=== PATIENT | female | born 1970 | race Hispanic/Latino ===

== ENCOUNTER 2019-12-22 01:30 | Inpatient (IN) | payer OTHER, SELFPAY ==
[~2019-12-22] VITALS: Ht 157.5 cm; Wt 65.1 kg
[2019-12-22] MEDS ORDERED: FENTANYL CITRATE PF 50 MCG/1 ML 2ML VIAL ONE (01:32)
[2019-12-22 02:20] LABS: BASOPHILS % (AUTO) 0.4 % (0.0-5.0); EOSINOPHILS % (AUTO) 3.2 % (0.0-8.0); HEMATOCRIT 36.6 % (36-48); LYMPHOCYTES % (AUTO) 50.8 % (21.0-51.0); MEAN CORPUSCULAR HEMOGLOBIN 31.4 pg (27.0-33.0); MEAN CORPUSCULAR HGB CONC 34.2 g/dL (32.0-36.0); NEUTROPHILS % (AUTO) 35.3 % (40.0-77.0); PLATELET COUNT (AUTO) 285 K/uL (130-400); RED BLOOD CELL COUNT(AUTO) 3.98 MIL/uL (4.00-5.50); RED CELL DISTRIBUTION WIDTH 11.9 % (11.0-15.5); WHITE BLOOD COUNT (AUTO) 9.6 K/uL (4.8-10.8)
[2019-12-22 02:32] LABS: CREATININE 0.8 mg/dL (0.5-1.5); POTASSIUM 3.1 mmol/L (3.5-5.1)
[2019-12-22] MEDS ORDERED: LIDOCAINE HCL-MPF 1% 2ML VIAL IV PRN (03:15)
[2019-12-22] MEDS: LACTATED RINGERS 1000ML 1,000 ML IV SCH ×3 (03:15→23:15)
[2019-12-22] MEDS ORDERED: MAGNESIUM 2GM PREMIX 50ML 50 ML IV PRN (03:15)
[2019-12-22] MEDS ORDERED: ACETAMINOPHEN 325 MG TAB PO PRN (03:15)
[2019-12-22] MEDS ORDERED: POTASSIUM CHLORIDE 20MEQ/100ML 100 ML IV PRN (03:15)
[2019-12-22 03:35] LABS: APPEARANCE,URINE Clear (CLEAR); BILIRUBIN,URINE Negative (NEGATIVE); COLOR,URINE Yellow (YELLOW); GLUCOSE, URINE (UA) Negative (NEGATIVE); KETONES,URINE Negative (NEGATIVE); LEUKOCYTE ESTERASE ,URINE Negative (NEGATIVE); NITRATE,URINE Negative (NEGATIVE); OCCULT BLOOD,URINE Negative (NEGATIVE); PROTEIN,URINE Negative (NEGATIVE); UROBILINOGEN,URINE 0.2 mg/dL (0.2-1.0)
[2019-12-22 03:37] LABS: BACTERIA,URINE None Seen /HPF (None Seen); RBC,URINE None Seen /HPF (0-1); WBC,URINE None Seen /HPF (0-1)
[2019-12-22] MEDS ORDERED: LACTATED RINGERS 1000ML 1,000 ML IV ONE (05:07)
[2019-12-22] MEDS ORDERED: POTASSIUM CHLORIDE 20MEQ/100ML 100 ML IV ONE (05:17)
[2019-12-22] MEDS ORDERED: LIDOCAINE HCL-MPF 1% 2ML VIAL ONE (05:17)
[2019-12-22 05:20] VITALS: BP 118/78
--- NOTE | 2019-12-22 05:20 | NUR ---
ADMISSION. PT TRANSFERRED FROM ER INTO ROOM 306, AWAKE, ALERT AND VERBALLY RESPONSIVE. C/O DISCOMFORT TO LEFT LOWER EXTREMITY, SPLINT OBSERVED TO LEFT LOWER EXTREMITY, SENSATION INTACT, ABLE TO MOVE TOES, WARM TO TOUCH. PT ORIENTED TO ROOM, CALL DEMPSEY WITHIN REACH, BED IN LOWEST POSITION. Addendum: 12/22/19 at 0539 by MILLY AJ RN Amended: Links added.
[2019-12-22] MEDS ORDERED: ONDANSETRON HCL 4 MG/2 ML VIAL ONE (05:58)
[2019-12-22] MEDS ORDERED: MORPHINE SULFATE 2 MG/ML 1ML SYG ONE (05:59)
[2019-12-22 06:19] LABS: BASOPHILS % (AUTO) 0.3 % (0.0-5.0); EOSINOPHILS % (AUTO) 0.9 % (0.0-8.0); HEMATOCRIT 34.4 % (36-48); MEAN CORPUSCULAR HEMOGLOBIN 30.7 pg (27.0-33.0); MEAN CORPUSCULAR HGB CONC 33.4 g/dL (32.0-36.0); MONOCYTES % (AUTO) 8.7 % (3.0-13.0); NEUTROPHILS % (AUTO) 66.7 % (40.0-77.0); PLATELET COUNT (AUTO) 245 K/uL (130-400); RED BLOOD CELL COUNT(AUTO) 3.74 MIL/uL (4.00-5.50); RED CELL DISTRIBUTION WIDTH 12.1 % (11.0-15.5); WHITE BLOOD COUNT (AUTO) 9.3 K/uL (4.8-10.8)
[2019-12-22] MEDS ORDERED: FENO145T26 PO (06:23)
[2019-12-22 06:39] LABS: ALBUMIN 3.8 g/dL (3.5-5.0); BILIRUBIN,TOTAL 0.2 mg/dL (0.2-1.0); CREATININE 0.6 mg/dL (0.5-1.5); MAGNESIUM 1.6 mg/dL (1.80-2.40); POTASSIUM 3.7 mmol/L (3.5-5.1)
[2019-12-22 08:24] VITALS: BP 123/75
[2019-12-22] MEDS: FAMOTIDINE/PF 20 MG/2 ML VIAL IV SCH ×2 (09:39→20:37)
[2019-12-22] MEDS: M.V.I. IV [ADULT] 10 ML, FOLIC ACID 1 MG, THIAMINE HCL 100 MG in SODIUM CHLORIDE 0.9% 1... IV SCH (09:39)
[2019-12-22 11:17] VITALS: BP 138/83
[2019-12-22] MEDS ORDERED: CHLORDIAZEPOXIDE HCL 25 MG CAP PO PRN (11:30)
[2019-12-22] MEDS ORDERED: PHARMACY COMMUNICATION MISC PRN (11:30)
[2019-12-22] MEDS ORDERED: LORAZEPAM 2 MG/ML 1 ML VIAL IVP PRN (11:30)
--- NOTE | 2019-12-22 12:00 | NUR ---
Dr. Owen aware that pt is cleared med. wyfadi to have surgery as per dr. damian. Addendum: 12/22/19 at 1933 by GILA TAPIA RN RN order for surgery entered.
[2019-12-22 12:06] LABS: CHOLESTEROL 213 mg/dL (<200); HDL CHOLESTEROL 101 mg/dL (35-85); LDL DIRECT 136 mg/dL (0-99); TRIGLYCERIDES 295 mg/dL (30-200)
[2019-12-22 12:07] LABS: HEMOGLOBIN A1C 5.9 % (4.0-6.0)
--- NOTE | 2019-12-22 12:23 | NUR ---
DCP: HOME Sw spoke to pt who states she is lives with her Cali Reynoso [phone] and their 13 and 14 yro kids. Pt is a Speech therapist hotel assistant general manager, independent, no DME or in home care services. Pt seen by Dr Alaniz at [facility] and uses [facility] for medications. Pt denies dc needs and plan is home at ca Addendum: 12/22/19 at 1228 by ANKUR MATTA SS Amended: Links added.
[2019-12-22] MEDS: TRAMADOL HCL 50 MG TABLET PO PRN ×2 (13:34→20:36)
[2019-12-22 16:32] VITALS: BP 130/81
[2019-12-22] MEDS ORDERED: ENOXAPARIN SODIUM 30 MG/0.3 ML SQ SCH (19:00)
[2019-12-22 19:48] VITALS: BP 139/90
[2019-12-22 23:39] VITALS: BP 127/86
[2019-12-23] VITALS (25 sets, daily range): BP systolic 132–176; BP diastolic 61–101
[2019-12-23 01:01] LABS: MAGNESIUM 1.9 mg/dL (1.80-2.40); POTASSIUM 3.9 mmol/L (3.5-5.1)
[2019-12-23] MEDS: MORPHINE SULFATE 2 MG/ML 1ML SYG IVP PRN ×2 (03:54→15:56)
[2019-12-23] MEDS: ONDANSETRON HCL 4 MG/2 ML VIAL IV PRN ×2 (03:57→15:59)
[2019-12-23 05:31] LABS: BASOPHILS % (AUTO) 0.4 % (0.0-5.0); HEMATOCRIT 33.2 % (36-48); LYMPHOCYTES % (AUTO) 30.8 % (21.0-51.0); MEAN CORPUSCULAR HGB CONC 34.3 g/dL (32.0-36.0); MEAN CORPUSCULAR VOLUME 93.3 fL (79-99); MONOCYTES % (AUTO) 13.1 % (3.0-13.0); NEUTROPHILS % (AUTO) 52.3 % (40.0-77.0); PLATELET COUNT (AUTO) 217 K/uL (130-400); RED BLOOD CELL COUNT(AUTO) 3.56 MIL/uL (4.00-5.50); RED CELL DISTRIBUTION WIDTH 11.8 % (11.0-15.5); WHITE BLOOD COUNT (AUTO) 7.8 K/uL (4.8-10.8)
[2019-12-23 05:51] LABS: INR 0.92 (0.85-1.15); PARTIAL THROMBOPLASTIN TIME 27.1 SEC (26.3-35.5)
[2019-12-23] MEDS: FAMOTIDINE/PF 20 MG/2 ML VIAL IV SCH ×2 (08:51→21:44)
[2019-12-23] MEDS: FENOFIBRATE NANOCRYSTALLIZED 145 MG TAB PO SCH (09:00)
[2019-12-23] MEDS: M.V.I. IV [ADULT] 10 ML, FOLIC ACID 1 MG, THIAMINE HCL 100 MG in SODIUM CHLORIDE 0.9% 1... IV SCH (09:01)
--- NOTE | 2019-12-23 11:30 | NUR ---
PT TRANSFERRED TO OR AAOX3, IN NO DISTRESS, IV INTACT, NO TENDERNESS NOR EDEMA.
[2019-12-23] MEDS ORDERED: ONDANSETRON HCL 4 MG/2 ML VIAL ONE (12:23)
[2019-12-23] MEDS ORDERED: SUCCINYLCHOLINE CHLORIDE 20 MG/ML 10 ML VIAL ONE (12:23)
[2019-12-23] MEDS ORDERED: ROCURONIUM 10MG/1ML SYR 10 MG/ML ML ONE (12:23)
[2019-12-23] MEDS ORDERED: PROPOFOL 10 MG/ML 20ML VIAL IV ONE (12:23)
[2019-12-23] MEDS ORDERED: LIDOCAINE PF 2% 5ML ABBOJECT ONE (12:23)
[2019-12-23] MEDS ORDERED: MIDAZOLAM HCL 1 MG/ML 2ML VIAL ONE (12:23)
[2019-12-23] MEDS ORDERED: FENTANYL CITRATE PF 50 MCG/1 ML 2ML VIAL ONE ×2 (12:24→13:17)
[2019-12-23] MEDS ORDERED: DEXAMETHASONE SOD PHOSPHATE 10MG/ML 1ML VIAL ONE (12:38)
[2019-12-23] MEDS ORDERED: CEFAZOLIN SODIUM 1 GM VIAL ONE (12:48)
[2019-12-23] MEDS ORDERED: NEOSTIGMINE 5MG/5ML SYR IV ONE (13:42)
[2019-12-23] MEDS ORDERED: GLYCOPYRROLATE 1 MG/5 ML SYRINGE ONE (13:42)
[2019-12-23] MEDS: LACTATED RINGERS 1000ML 1,000 ML IV SCH (14:10)
[2019-12-23] MEDS ORDERED: MEPERIDINE-PF 25 MG/ML SYG ONE ×2 (14:14→14:25)
[2019-12-23] MEDS ORDERED: KETOROLAC TROMETHAMINE 30MG/ML ONE (14:33)
--- NOTE | 2019-12-23 15:15 | NUR ---
PT BACK FROM OR S/P LEFT TIBIAL INTERLOCKING NAILING, AAOX3, EYES CLOSED, IV INTACT, DRESSING TO LEFT LOWER LEG CLEAN AND DRY INTACT. DENIES ANY PAIN AT THIS TIME.
[2019-12-23] MEDS ORDERED: FERROUS FUMARATE 324 MG TABLET PO PRN (15:45)
[2019-12-23] MEDS ORDERED: POTASSIUM CHLORIDE 20MEQ/100ML 100 ML IV PRN (15:45)
[2019-12-23] MEDS: CEFAZOLIN 3GM /D5W 100ML 100 ML IV SCH (21:45)
[2019-12-23] MEDS: HYDROCODONE/ACETAMINOPHEN 5/325 MG TAB PO PRN (21:45)
[2019-12-24] MEDS: SODIUM CHLORIDE 0.9% 1000ML 1,000 ML IV SCH ×2 (01:24→11:40)
[2019-12-24 04:05] VITALS: BP 125/84
[2019-12-24] MEDS: CEFAZOLIN 3GM /D5W 100ML 100 ML IV SCH (04:49)
[2019-12-24 05:25] LABS: BASOPHILS % (AUTO) 0.1 % (0.0-5.0); EOSINOPHILS % (AUTO) 0.3 % (0.0-8.0); HEMATOCRIT 28.5 % (36-48); LYMPHOCYTES % (AUTO) 21.4 % (21.0-51.0); MEAN CORPUSCULAR HEMOGLOBIN 31.4 pg (27.0-33.0); MEAN CORPUSCULAR HGB CONC 33.7 g/dL (32.0-36.0); MEAN CORPUSCULAR VOLUME 93.1 fL (79-99); MONOCYTES % (AUTO) 11.9 % (3.0-13.0); NEUTROPHILS % (AUTO) 65.9 % (40.0-77.0); PLATELET COUNT (AUTO) 202 K/uL (130-400); RED BLOOD CELL COUNT(AUTO) 3.06 MIL/uL (4.00-5.50); RED CELL DISTRIBUTION WIDTH 11.9 % (11.0-15.5); WHITE BLOOD COUNT (AUTO) 9.1 K/uL (4.8-10.8)
[2019-12-24 05:45] LABS: CREATININE 0.8 mg/dL (0.5-1.5); POTASSIUM 3.6 mmol/L (3.5-5.1)
[2019-12-24] MEDS: HYDROCODONE/ACETAMINOPHEN 5/325 MG TAB PO PRN ×3 (05:59→16:39)
[2019-12-24] MEDS: MORPHINE SULFATE 2 MG/ML 1ML SYG IVP PRN (06:31)
[2019-12-24] MEDS ORDERED: POTASSIUM CHLORIDE 20 MEQ ERTAB PO PRN (06:45)
[2019-12-24 08:00] VITALS: BP 136/89
[2019-12-24] MEDS ORDERED: ENOXAPARIN SODIUM 40 MG/0.4 ML SYRINGE SQ SCH (09:00)
[2019-12-24] MEDS ORDERED: POLYETHYLENE GLYCOL 3350 17 GM POWD.PACK PO SCH (09:00)
[2019-12-24] MEDS: FAMOTIDINE/PF 20 MG/2 ML VIAL IV SCH (09:42)
[2019-12-24] MEDS: FENOFIBRATE NANOCRYSTALLIZED 145 MG TAB PO SCH (09:42)
[2019-12-24] MEDS: M.V.I. IV [ADULT] 10 ML, FOLIC ACID 1 MG, THIAMINE HCL 100 MG in SODIUM CHLORIDE 0.9% 1... IV SCH (09:43)
[2019-12-24 11:13] VITALS: BP 135/76
--- NOTE | 2019-12-24 11:26 | NUR ---
Patient will need a bedside commode in the room for now due to NWB status to her Left lower leg.Requires 1 person assist from bed to chair this AM during initial PT assessment.Notified YESENIA Nicholas regarding patient's present status and needs in the room. Addendum: 12/24/19 at 1129 by KAHLIL MOORE, PT PT Amended: Links added.
[2019-12-24] MEDS ORDERED: PSYLLIUM SEED 1 EACH PACKET PO SCH (12:00)
[2019-12-24 16:19] VITALS: BP 140/86
--- NOTE | 2019-12-24 16:45 | NUR ---
CM NOTE/ELIQUIS COUPON ELIQUIS COUPON GIVEN WELL GOOD RX, PATIENT VERBALIZED TEACHING OF COUPONS.
--- NOTE | 2019-12-24 19:00 | NUR ---
DISCHARGE PATIENT GIVEN DISCHARGE INSTRUCTIONS AND EDUCATION ON FOLLOW UP APPOINTMENTS, RX (TRAMADOL, TYLENOL#3, ELIQUIS), NWB STATUS, WALKER, AND LIFE STYLE CHANGE. PATIENT VERBALIZED UNDERSTANDING OF ALL EDUCATION GIVEN VIA TEACH BACK. NO DISTRESS NOTED UPON DISCHARGE. ALL BELONGINGS TAKEN WITH. IV DISCONTINUED, CATHETER INTACT. PATIENT LEFT VIA WHEELCHAIR, PCP AT SIDE.
[2019-12-25] MEDS ORDERED: BISACODYL 5 MG TABLET.DR PO PRN (15:45)
[2019-12-26] MEDS ORDERED: BISACODYL 10 MG SUPP.RECT RC PRN (15:45)
== END 2019-12-24 18:50 | disposition home or self-care (01) | DRG 494 ==
LOC: EDH 01:30 → EDHIP 01:31 → 3BH 04:33
PROVIDERS: ADMIT Internal Medicine; ATTEND Internal Medicine
PROC: 0QSH04Z Reposition Left Tibia with Internal Fixation Device, Open Approach (ICD-10-PCS; principal; 2019-12-23 12:20)
DX: S82.252A Displaced comminuted fracture of shaft of left tibia, initial encounter for closed fracture (principal); S82.402A Unspecified fracture of shaft of left fibula, initial encounter for closed fracture; Y90.6 Blood alcohol level of 120-199 mg/100 ml; I10 Essential (primary) hypertension; E78.00 Pure hypercholesterolemia, unspecified; E78.1 Pure hyperglyceridemia; E78.5 Hyperlipidemia, unspecified; F10.129 Alcohol abuse with intoxication, unspecified; F41.1 Generalized anxiety disorder; M85.80 Other specified disorders of bone density and structure, unspecified site; W06.XXXA Fall from bed, initial encounter; Y93.89 Activity, other specified; Y92.89 Other specified places as the place of occurrence of the external cause; Y99.8 Other external cause status; Z87.19 Personal history of other diseases of the digestive system
CPT/HCPCS: 36415; 73590; 73600; 80048; 80053; 80061; 81001; 83036; 83735; 83880; 84132; 84484; 85025; 85610; 85730; 93005; 97039; G0378; G0480; J0330; J0690; J1100; J1650; J1885; J2001; J2175; J2250; J2405; J2704; J2710; J3010; J3411; J3475; J3480; J3490; J7030; J7120